=== PATIENT | male | born 1945 | race Hispanic/Latino ===

== ENCOUNTER 2017-07-02 15:45 | Emergency (ER) | payer OTHER, MEDICARE ==
[~2017-07-02] VITALS: Ht 165.1 cm; Wt 79.8 kg
[~2017-07-02 15:45] MED LIST: ASPIRIN EC81 MG PO; FENOFIBRATE160 MG PO; LISINOPRIL-HCT1 EAC1 PO; METFORMIN HCL500 MG PO; METOPROLOL SUC100 MG PO; PERCOCET 10-321 EACH PO; SIMVASTATIN20 MG PO
[2017-07-02] MEDS ORDERED: ACYCLOVIR200 MG PO (19:26)
== END 2017-07-02 19:40 | disposition home or self-care (01) ==
LOC: ED 15:45
DX: A60.01 Herpesviral infection of penis (principal); E11.9 Type 2 diabetes mellitus without complications; E78.00 Pure hypercholesterolemia, unspecified; Z87.891 Personal history of nicotine dependence; Z90.49 Acquired absence of other specified parts of digestive tract; Z88.0 Allergy status to penicillin; Z79.82 Long term (current) use of aspirin; Z79.899 Other long term (current) drug therapy; Z79.84 Long term (current) use of oral hypoglycemic drugs
CPT/HCPCS: 81001; 99283

== ENCOUNTER 2021-04-17 06:03 | Inpatient (IN) | payer OTHER, MEDICARE ==
[~2021-04-17] VITALS: Ht 170.2 cm; Wt 74.6 kg
[~2021-04-17 06:03] MED LIST changes: +ACYCLOVIR200 MG PO; +MECLIZINE HCL25 MG PO; +ZOFRAN4 MG PO
--- NOTE | 2021-04-17 08:15 | NUR ---
Spoke with pts , brother, and sister in law. All report pt has history of vertigo post brain tumor in 1993. This week vertigo and falls have increased. Pt not feeling well. Now running a fever. Family state they are unable to care for pt as they have bad backs and are unable to lift pt off floor. Would like pt to go SNF for rehab to increase strengt to be able to walk on his own again. Pt is Covid +, will cont [email or web address]. Will wait to send chart for placement until pt seen by PT/OT. Will seek placement for pt Mon or Tu if he is medically stable to dc.
--- NOTE | 2021-04-17 10:46 | NUR ---
PATIENT ARRIVED FROM ER, PATIENT IN BED, BED ALARM ON, ROOM AIR , ORIENTATED X3 , FORGETFUL TO DATE AND YEAR, DENIES ANY NEEDS AT THE MOMENT.
--- NOTE | 2021-04-17 12:53 | NUR ---
rn in room to recheck temp, 102.3 prn tylenol given charge histotechnologist notified and DR tucker. blood culture ordered
--- NOTE | 2021-04-17 13:48 | NUR ---
Patient had an incontinent urine. Patient was changed, 2 PA, patient needs help rolling. RN was within the room.
[2021-04-17] MEDS ORDERED: MECLIZINE HCL25 MG PO (14:17)
[2021-04-17] MEDS ORDERED: METOPROLOL SUCC50 MG PO (14:21)
--- NOTE | 2021-04-17 15:09 | NUR ---
Spoke with PT and she will evaluate pt shortly.
--- NOTE | 2021-04-17 15:49 | NUR ---
rn updated brother christiano on pateint condtition.
--- NOTE | 2021-04-17 16:11 | NUR ---
MED REC COMPLETE
--- NOTE | 2021-04-17 16:18 | NUR ---
[facility] form, face sheet, covid test, summary with vs, med list, H&P, PT eval faxed to [facility] covid admissions for placement to a covid SNF.
--- NOTE | 2021-04-17 16:21 | NUR ---
RN IN ROOM TO ASSESS PATIENT PATIENT AFEBRILE, ASSISTED IN CALLING USING ROOM PHONE DENIES ANY OTHER NEEDS AT THE MOMENT.
--- NOTE | 2021-04-17 18:33 | NUR ---
133/57 BP. 76 MAP. 100.7 Temp. RN has been notified. Patient had a urine incontinence. Nadege care was done and patient was lifted up in bed. Patient can help roll from side to side a little.
--- NOTE | 2021-04-17 18:46 | NUR ---
PRN TYLENOL GIVEN FOR FEVER.
--- NOTE | 2021-04-17 20:30 | NUR ---
PATIENT CALLED TO GO TO THE BATHROOM. PATIENT INCONTINENT AND URINE IN ATTENDS AND ON GOWN. PATIENT 1PA UP TO BEDSIDE COMMODE AND MISSED COMMODE AND URINATED ON THE FLOOR. PATIENT, BED, AND ROOM CLEANED UP. NEW ATTENDS ON. BED ALARM ON. VS AND I+O COMPLETE. CALL LIGHT IS IN REACH.
--- NOTE | 2021-04-17 22:47 | NUR ---
PATIENT RESTING QUIETLY IN BED. PATIENT DENIES ANY CARE NEEDS AND DENIES PAIN. 3UNITS INSULIN COVERAGE GIVEN FOR 225 BLOOD SUGAR. PATIENT'S CALL LIGHT IS IN REACH AND PATIENT READY TO GET SOME SLEEP. LIGHTS TURNED DOWN AND CALL LIGHT IS IN REACH.
--- NOTE | 2021-04-18 01:15 | NUR ---
PATIENT REQUESTING TO USE THE BEDSIDE COMMODE. THIS RN ASSISTED TO COMMODE 1PA. PATIENT ALREADY INCONTINENT IN ATTENDS AND ON CHUX AND FLAT SHEET. ALL THESE WERE CHANGED AND PATIENT CLEANED UP AND BACK IN BED WITH A WARM BLANKET. BED ALARM ON AND CALL LIGHT IS IN REACH.
--- NOTE | 2021-04-18 03:30 | NUR ---
PATIENT RESTING QUIETLY IN LOW FOWLERS POSITION, EYES CLOSED, RESPIRATIONS REGULAR AND EVEN, CALL LIGHT IS IN REACH.
--- NOTE | 2021-04-18 04:45 | NUR ---
PATIENT CALLED TO GO TO THE COMMODE AND VOIDED 100MLS AND WAS INCONTIENT IN HIS ATTENDS ALREADY. 1PA TO THE COMMODE AND BACK TOP. THIS RN PLACED NEW ATTENDS AND PATIENT DENIED ANY OTHER NEEDS. CALL LIGHT IS IN REACH AND BED ALARM IS ON.
--- NOTE | 2021-04-18 06:53 | NUR ---
PATIENT CALLED TO USE THE COMMODE VOIDED A SMALL AMOUNT, BUT WAS INCONTINENT IN ATTENDS ALREADY. ATTENDS CHANGED AND PATIENT BACK IN BED WITH A FRESH GOWN. CALL LIGHT IN REACH AND BREAKFAST ORDER TAKEN.
--- NOTE | 2021-04-18 07:15 | NUR ---
report recieved from rn shift mgr RN, patient sleeping in bed, bed alarm real estate economist light within reach, no needs at the moment.
--- NOTE | 2021-04-18 07:40 | NUR ---
patient in the bed resting, blood sugar done. he is sitting up in the bed eating breakfast. call light within reach. warmwash cloth offered, no further needs at this time.
--- NOTE | 2021-04-18 10:28 | NUR ---
RN IN ROOM TO ADMINSTER TYELNOL FOR FEVER, DR EAGLE AWARE OF FAVERS, NO NEEDS AT THE TIME DENIES DISCOMFORT.
--- NOTE | 2021-04-18 11:45 | NUR ---
RN IN ROOM TO REASSESS TEMP, TEMP STILL REMAINS ELEVATED PATIENT DENIES DISCOMFORT, TEMP 102.5, DR EAGLE NOTIFIED MOTRIN ORDERED, PATIENT ASSISTED UP TO THE RECLINER AND HELPED CLEAN UP HAD A URINE INCONTINENCE, SBA WITH WALKER AND GAIT BELT, CHAIR ALARM ON DENIES, LUNCH TRAY DELIVERED, CALL LIGHT WITHIN REACH.
--- NOTE | 2021-04-18 13:07 | NUR ---
RN IN ROOM TO REASSESS PATIENT TEMP 99.1 , RN ASSISTED PATIENT IN DIALING CHAZ DENIES ANY OTHER NEEDS AT THE MOMENT.
--- NOTE | 2021-04-18 15:21 | NUR ---
PATIENT SON HERE TO SEE PATIENT
--- NOTE | 2021-04-18 16:29 | NUR ---
RN updated patient anshu lawrence on patient condition provided phone number to the unit, patient in recliner wacthing tv no needs at the time.
--- NOTE | 2021-04-18 20:00 | NUR ---
PATIENT UP TO THE BATHROOM AND MISSED TOILET HAT, BUT SOUNDED LIKE HE VOIDED A FAIR AMOUNT. 1PA WITH THIS RN AND FWW TO BATHROOM AND BACK TO BED. PM MEDS GIVEN AND VS ARE STABLE. BED ALARM IS ON AND PATIENT HAS NO OTHER MEDS AT THIS TIME. CALL LIGHT IS IN REACH.
--- NOTE | 2021-04-18 21:26 | NUR ---
PT'S IV PUMP WAS BEEPING, TUBING WAS KINKED UNDER HIS ARM. IT IS NOW INFUSING FINE. PT DENIES FURTHER NEEDS, CALL LIGHT IS CLOSE.
--- NOTE | 2021-04-18 23:36 | NUR ---
PATIENT RESTING QUIETLY IN BED, EYES CLOSED, RESPIRATIONS REGULAR AND EVEN, CALL LIGHT IS IN REACH, BE ALARM IS ON.
--- NOTE | 2021-04-19 02:00 | NUR ---
PATIENT CALLED TO GO TO THE RESTROOM, BUT WAS ALREADY INCONTINENT OF URINE IN ATTENDS AND IN THE BED. 1PA UP TO THE BEDSIDE COMMODE WITH FWW. BED CHANGED AND NEW ATTTENDS IN PLACE. PATIENT MISSED THE COMMODE AND VOIDED ALL OVER THE FLOOR. FLOOR CLEANED UP. PATIENT BACK IN FRESH BED AND CALL LIGHT IN REACH. PATIENT HAS FEVER 101.6F AND GIVEN TYLENOL. CHARGE NURSE STEVEN INFORMED OF FEVER.
--- NOTE | 2021-04-19 04:38 | NUR ---
CHECKED ON PATIENT AND HE HAD THROWN OFF HIS COVERS AND NEEDED TO GO TO THE BATHROOM. THIS RN ASKED WHY HE DID NOT USE HIS CALL LIGHT AND HE SAYS,"I DID!" CHECKED TO MAKE SURE CALL LIGHT IS WORKING AND IT IS. PATIENT INCONTINENT OF URINE AGAIN IN A LARFGE AMOUNT. ATTENDS AND RAKESH CHANGED. PATIENT TRIED TO VOID ON THE COMMODE WITH NO RESULT. PATIENT BACK IN BED WITH BED ALARM ON, DRY LINENS AND NEW GOWN AND ATTENDS. PATIENT HAD NO OTHER NEEDS AT THIS TIME. CALL LIGHT IS IN REACH.
--- NOTE | 2021-04-19 06:10 | NUR ---
PT CALLED FOR ASSISTANCE TO BSC. HE IS NOW BACK IN BED AFTER VOIDING 100MLS OF URINE. PT DENIES FURTHER NEEDS, CALL LIGHT IS CLOSE.
--- NOTE | 2021-04-19 07:46 | NUR ---
RECEIVED REPORT FROM DAY SHIFT RN. PATIENT IS RESTING IN BED WITH EYES CLOSEDM RR 16. CALL LIGHT IN REACH. BED ALARM ON FOR SAFETY.
--- NOTE | 2021-04-19 08:45 | NUR ---
PATIENT ASSESMENT COMPLETED. PATIENTS VITALS TAKEN AND RECORDED. ATTEND IS DRY AT THIS TIME. PATIENT ASSISTED TO THE RECLINER A 1PA W/FWW. PATIENT IS UP TO RECLINER FOR BREAKFAST. PATIENT DENIES ANY PAIN OR SOB. PATIENTS IV IS INFUSING AND FLUSHES WELL. PATIENTS SCHEDULED MEDICATIONS GIVEN PER ORDER. PATIENTS WATER REFILLED. PATIENT HAS CHAIR ALRM ON FOR SAFETY. CALL LIGHT IN REACH.
--- NOTE | 2021-04-19 10:12 | NUR ---
PATIENT IS RESTING IN RECLINER TALKING ON THE PHONE. PATIENT DENIES ANY NEEDS. CALL LIGHT IN REACH.
--- NOTE | 2021-04-19 11:03 | NUR ---
PATIENT ASSISTED TO THE RESTROOM A 1PA W/FWW. PATIENT WAS ABLE TO VOID. PATIENT IS BACK IN RECLINER RESTING. PATIENTS IV INFUSING PER ORDER. PATIENT WAS ABLE TO STATE WHERE HE WAS AND WHY HE WAS HERE. PATIENT DID NOT KNOW DATE. PATIENT WAS ABLE TO STATE . PATIENT WAS ABLE TO STATE THE PRESIDENT AND REAL ESTATE MANAGEMENT SPECIALIST. PATIENTS CHAIR ALARM OS ON. PATIENT ASSISTED TO CALL BROTHER. CALL LIGHT IN REACH.
--- NOTE | 2021-04-19 12:55 | NUR ---
PATIENTS SCHEDLUED MEDICATION GIVEN PER ORDER. PATIENT COMPLETED PT. PATIENT IS NOW IN RECLINER EATING LUNCH. CHAIR ALARM ON FOR SAFETY. CALL LIGHT IN REACH.
--- NOTE | 2021-04-19 13:55 | NUR ---
PATIENTS VITALS TAKEN AND RECORDED. INTAKE AND OUTPUT RECORDED. PATIENTS COMPLETED HIS LUNCH AND CONSUMED 100%. PATIENT DENIES ANY NEEEDS. CHAIR ALARM REMAINS ON. IV INFUSING PER ORDER.
--- NOTE | 2021-04-19 17:26 | NUR ---
CBG checked, 230. SS insulin administered. IVF infusing WNL. Pt sitting up in chair eating dinner. States no further needs at this time.
--- NOTE | 2021-04-19 19:30 | NUR ---
SHIFT REPORT RECEIVED BY THIS NURSE FROM SU [place]. PATIENT UP TO THE BATHROOM WITH DAY SHIFT METAL RECLAMATION KETTLE TENDER AT THIS TIME.
--- NOTE | 2021-04-19 20:47 | NUR ---
CALL LIGHT ANSWERED, 1PA WITH FWW TO AMBULATE TO RESTROOM, GAIT UNSTEADY. INCONTINENT OF URINE. ATTENDS CHANGED, SMALL VOID IN TOILET. BACK IN BED. IVF INFUSING WNL. VSS. ICE WATER PROVIDED. pt DENIES ADDITIONAL NEEDS. CALL LIGHT AND PERSONAL SUPPLIES IN REACH.
--- NOTE | 2021-04-19 21:15 | NUR ---
PATIENT'S PM ASSESSMENT IS COMPLETE. PATIENT JUST BACK TO BED AFTER GOING TO THE BATHROOM WITH CHARGE NURSE CATHY. LUNGS ARE DIM BUT CLEAR AND HAVING NO RESPIRATORY ISSUES. PATIENT DENIES PAIN AND HAS FRESH WATER. PATIENT HAS NO OTHER CARE NEEDS AT THIS TIME. CALL LIGHT IS IN REACH AND BED ALARM IS ON.
--- NOTE | 2021-04-19 23:20 | NUR ---
CHECKED ON PATIENT AND HE WAS GETTING UNDRESSED AND SAID HE NEEDED TO USE THE RESTROOM. THIS RN ASSISTED PATIENT TO THE BEDSIDE COMMODE AND BACK TO BE 1PA. PATIENT WAS INCONTINENT URINE AND VOIDED SOME IN THE COMMODE. NEW ATTENDS IN PLACE AND PATIENT COVERED UP AND BED ALARM ON. PATIENT DENIES ANY FURTHER CARE NEEDS AT THIS TIME.
--- NOTE | 2021-04-20 00:08 | NUR ---
PATIENT'S IV BEEPING AND NEW BAG OF IV FLUIDS HUNG. PATIENT DENIES ANY CARE NEEDS AT THIS TIME AND IS WATCHING TV. CALL LIGHT IS IN REACH AND BED ALARM IS ON.
--- NOTE | 2021-04-20 01:37 | NUR ---
PATIENT CALLED TO USE THE RESTROOM AND THIS RN ASSISTED PATIENT TO THE COMMODE AND BACK TO BED. PATIENT VOIDED A SMALL AMOUNT, BUT WAS ALREADY INCONTINENT IN HIS ATTENDS AND THESE WERE CHANGED. PATIENT BACK IN BED AND BED ALARM ON. CALL LIGHT IN REACH AND ICE WATER REFILLED. PATIENT HAS NO OTHER CARE NEEDS AT THIS TIME.
--- NOTE | 2021-04-20 04:11 | NUR ---
PATIENT RESTING QUIETLY SUPINE, EYES CLOSED, RESPIRATIONS ARE REGULAR AND EVEN, CALL LIGHT IN REACH, AND BED ALARM ON. NO CURRENT CARE NEEDS AT THIS TIME.
--- NOTE | 2021-04-20 04:51 | NUR ---
CALL LIGHT ANSWERED. PATIENT GOT UP TO USE THE BEDSIDE COMMODE 1 PA USING WALKER. PRIMARY RN SCOT WAS WITH PATIENT. V/S AND I&O'S DONE AND RECORDED. PATIENT IS BACK IN BED. CALL LIGHT WITHIN REACH.
--- NOTE | 2021-04-20 04:52 | NUR ---
PATIENT UP TO THE COMMODE 1PA AND FWW. OFELIA BANUELOS AND THIS RN IN ROOM HELPING PATIENT. PATIENT VOIDED AN LITTLE, BUT WAS INCONTINENT URINE IN IN ATTENDS ON ON BED CHUX. BOTH THESE WERE CHANGED AND PATIENT WASHED UP AND BACK IN BED. VS STABLE AND AM ASSESSMENT DONE. PATIENT HAD NO OTHER CARE NEEDS AT THIS TIME. CALL LIGHT IS IN REACH AND BED ALARM.
--- NOTE | 2021-04-20 06:30 | NUR ---
PATIENT HAS SLEPT TONIGHT IN BETWEEN HIS EPISODES OF INCONTINENCE. PATIENT SEEMS TO BE ABLE TO CALL TO VOID DURING THE DAY, BUT DOESN'T CALL OR ONLY CALLS AFTER HE IS ALREADY INCONTINENT. PATIENT HAS REMAINED AFEBRILE ALL NIGHT AND OTHER VS HAVE BEEN STABLE. LUNGS ARE CLEAR, BUT DIM. PATIENT CURRENTLY RESTING QUIETLY SUPINE IN BED AND BED ALARM IS ON. RERSPIRATIONS ARE REGULAR AND EVEN AND CALL LIGHT IS IN REACH.
--- NOTE | 2021-04-20 07:29 | NUR ---
REPORT RECIEVED FROM WENDY RIVERA RN.
--- NOTE | 2021-04-20 07:45 | NUR ---
Received message when I returned from the weekend from Wilma at [facility] [address], stating they will accept this pt today. Attempted to return call for further information to determine where they are located as [facility] will transport today or tomorrow. Left message requesting return call.
--- NOTE | 2021-04-20 08:12 | NUR ---
MORNING ASSESSMENT DONE. PATIENT RECENTLY INCONTINENT OF URINE, LINENS CHANGED, PATIENT UP TO COMMODE. BLOOD GLUCOSE IS 134 THIS MORNING WITH NO COVERAGE. PATIENT DENIES PAIN, BED ALARM IS ON. MORNING MEDICATIONS GIVEN.
--- NOTE | 2021-04-20 08:30 | NUR ---
Updated Dr. Tolentino in 829 meeting pt has been accepting to SNF in [facility]. I have called and spoken with Vanessa mcarthur and they will pick pt up at 10:00 today and transport to [facility] [address].
--- NOTE | 2021-04-20 09:00 | NUR ---
Received call family are at the front of the hospital and would like to have a meeting. Brother is stating pt should not have to go to a SNF and should be able to remain here. He knows other pts who were able to stay. He is also staying pt cannot return home, but will need to go to a SNF when he is over covid. Attempted to explain Uli does not met requirements to remain hospitalized. He does not have a need for 02 and his vs are stable. He is in need of PT and we do not provide this here. He then states he was infomred by [facility] pt could remain here for 20 days. We further discussed this is the time period medicare will pay for a SNF not a hospital. I also let him know [facility] does not have any say in length of stay at the hospital. After 40 mins of conversation where I repeated pt does not cont. to qualify for an IP stay, I let the family know they may take Uli home to their house or he may go to the SNF as scheduled. I asked the if she is ok with the plan and she states, yes. She just would like him to get to a assisted. I then reminded the family, pts transport will be here in 15 min. I asked if they had brought clothing as we had discussed last week and they did not. will go home and get clothing for rehab stay.
[2021-04-20] MEDS ORDERED: IBUPROFEN400 MG PO (09:09)
[2021-04-20] MEDS ORDERED: TYLENOL325 MG PO (09:09)
[2021-04-20] MEDS ORDERED: METOPROLOL TART25 MG PO (09:09)
[2021-04-20] MEDS ORDERED: MECLIZINE HCL25 MG PO (09:10)
[2021-04-20] MEDS ORDERED: SIMVASTATIN20 MG PO (09:10)
[2021-04-20] MEDS ORDERED: ASPIRIN81 MG PO (09:11)
[2021-04-20] MEDS ORDERED: METFORMIN HCL500 MG PO (09:11)
[2021-04-20] MEDS ORDERED: HUMALOG100 UNITS/ SUB-Q (09:12)
--- NOTE | 2021-04-20 09:20 | NUR ---
RAPID COVID TEST DONE PER DR ORDER. COVID TEST COLLECTED FROM BOTH NARES W/O ISSUE. PT TOLERATED WELL.
--- NOTE | 2021-04-20 10:00 | NUR ---
Saw brother at nurses station, he is complaining transport is late. I let him know I moved it back and I asked him if family had arrived with pts clothing. He states they are on their way. Informed I had moved transport back as I did not think they would be ready and transport will be here in 10 minutes. Brother will call and see if pts belongings will be here. Returned to office and faxed orders, pasrr, rx, PT notes and updated clinicals from the weekend. gave phone number for RN to call report.
--- NOTE | 2021-04-20 10:20 | NUR ---
PATIENT IN WHEELCHAIR AND TAKEN OUTSIDE FOR [facility] TO DRIVE PATIENT TO [place].
--- NOTE | 2021-04-20 10:33 | NUR ---
REPORT CALLED TO THE [facility] IN [place].
--- NOTE | 2021-04-20 10:40 | NUR ---
Recieved call from Wilma at [facility]. Orders are completed and updated pt left at 1015.
== END 2021-04-20 10:18 | disposition short-term general hospital (02) | DRG 70 ==
LOC: ED 06:03 → MS 10:05
PROVIDERS: ADMIT Student in an Organized Health Care Education/Training Program; ATTEND Student in an Organized Health Care Education/Training Program
PROC: 8E0ZXY6 Isolation (ICD-10-PCS; principal; 2021-04-17)
DX: G93.41 Metabolic encephalopathy (principal); U07.1 COVID-19; M62.82 Rhabdomyolysis; M54.2 Cervicalgia; R42 Dizziness and giddiness; S09.90XA Unspecified injury of head, initial encounter; E11.9 Type 2 diabetes mellitus without complications; R29.6 Repeated falls; I10 Essential (primary) hypertension; E78.5 Hyperlipidemia, unspecified; Z98.890 Other specified postprocedural states; Z90.49 Acquired absence of other specified parts of digestive tract; Z88.0 Allergy status to penicillin; Z79.82 Long term (current) use of aspirin; Z79.899 Other long term (current) drug therapy; Z79.84 Long term (current) use of oral hypoglycemic drugs; W19.XXXA Unspecified fall, initial encounter
CPT/HCPCS: 70450; 71045; 72125; 80048; 80053; 81001; 82553; 85025; 85610; 87040; 97116; 97161; 97165; 97530; 99285-25; A9270; C9803; J1650; J1815; J7121; U0003

== ENCOUNTER 2023-02-01 12:45 | Day surgery (SDC) | payer BC, MEDICARE ==
[~2023-02-01] VITALS: Ht 162.6 cm; Wt 68.0 kg
[~2023-02-01 12:45] MED LIST changes: +ASPIRIN81 MG PO; +HUMALOG100 UNITS/ SUB-Q; +IBUPROFEN400 MG PO; +METOPROLOL SUCC50 MG PO; +METOPROLOL TART25 MG PO; +RYBELSUS14 MG PO; +TYLENOL325 MG PO
[2023-02-01 13:23] VITALS: BP 122/66
--- NOTE | 2023-02-01 15:29 | NUR ---
02/01/23 1529 Elvira Roblero 1520- PT ARRIVES TO UNIT VIA STRETCHER FROM OR. PT IS AROUSABLE BY VERBAL STIMULI. PT REPORTS NO PAIN OR NAUSEA AT THIS TIME. PT EYES OPEN AND CLOSE PERIODICALLY, RESPIRATIONS ARE EVEN AND UNLABORED, NO SIGNS OF DISTESS. PT ON 3L OF O2 W/O2 AT 100% VIA PULSE OX. 1524- PT TITRATED TO RA AT THIS TIME, O2 >90% VIA PULSE OX. RESPIRATIONS EVEN AND UNLABORED. PT AWAKE ON AND OFF, ASKS QUESTIONS APPROPRIATELY. 1526- STIVEN CARRANZA AT BEDSIDE DISCUSSING PROCEDURE W/PT. ALL PT QUESTIONS ANSWERED AT THIS TIME. 1529- PT ENCOURAGED TO PASS GAS NEEDED, PT STATES VERBAL UNDERSTANDING AT THIS TIME.
[2023-02-01 15:47] VITALS: BP 117/68
--- NOTE | 2023-02-03 10:42 | OR ---
[facility] [address], [place] [address] Signed DATE OF OPERATION: 02/01/2023 SURGEON: Jesus Saleem MD PREOPERATIVE DIAGNOSIS: Colon screening. POSTOPERATIVE DIAGNOSIS: Normal colon to cecum. PROCEDURE: Total colonoscopy to cecum. ANESTHESIA: Intravenous sedation, fentanyl 100 mcg, and Versed 4 mg. INDICATION: This 77-year-old man, who is a patient of DARIEL Barnett. He is known to me from the past and had undergone colonoscopy in 2013, at which time he had heme-positive stool. He has a distant history of hematochezia in 2001. 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 He is symptom free at this time and is now to undergo colonoscopy for screening. He understands risk of bleeding, infection, and perforation and wished to proceed. FINDINGS: The prep was good. Complete colonoscopy was undertaken of the cecum. He had no evidence of polyps, diverticular formation, colitis, or cancer. He did have some scarring in the posterior anal canal, not showing any sign of neoplasm and represented probably a healed fissure. DESCRIPTION OF PROCEDURE: The patient was brought to the endoscopy suite and placed in lateral decubitus position, given intravenous sedation to the point of slurred speech and nystagmus. Digital rectal examination demonstrated posterior anal scar without associated bleeding or neoplasm. The Olympus video colonoscope was passed in the rectum and manipulated throughout the colon ultimately intubating the cecum itself. The ileocecal valve and appendiceal orifice were normal. Scope was withdrawn from that. Examination throughout showed no sign of polyps, diverticular formation, colitis, or cancer. Retroflexed view was normal. Careful passes through the anal canal showed no sign of neoplastic change of the anal canal either. Scope was removed. The patient was taken to the recovery room Electronically Signed By: JESUS SALEEM MD 02/03/23 1042 PATIENT NAME: TAN HOLDEN OPERATIVE REPORT DATE OF : 47 REPORT #: [id number] PHYSICIAN: JESUS SALEEM MD PCP: CHEYANNE DELA CRUZ PA-C REPORT IS CONFIDENTIAL AND NOT TO BE RELEASED WITHOUT AUTHORIZATION [facility] [address], [place] [address] Signed in good condition. CONCLUDING DIAGNOSIS: Normal colon to cecum. PLAN: Recommend repeat colonoscopy in 10 years if clinically appropriate at age 87 based on his prior history of polyps. He will return to the ongoing care of PA. Anibal MD DEMETRIS Dutton/MODL /[id number] cc: Cheyanne Dela Cruz PA-C Copies: CHEYANNE DELA CRUZ PA-C ~ Electronically Signed By: JESUS SALEEM MD 02/03/23 1042 PATIENT NAME: TAN HOLDEN OPERATIVE REPORT DATE OF : 47 REPORT #: [id number] PHYSICIAN: JESUS SALEEM MD PCP: CHEYANNE DELA CRUZ PA-C REPORT IS CONFIDENTIAL AND NOT TO BE RELEASED WITHOUT AUTHORIZATION
== END 2023-02-01 16:10 | disposition home or self-care (01) ==
LOC: OPS 12:45 → DS 12:56 → OPS 13:45 → DS 13:45 → OPS 16:10
PROVIDERS: ATTEND Surgery
PROC: 0DJD8ZZ Inspection of Lower Intestinal Tract, Via Natural or Artificial Opening Endoscopic (ICD-10-PCS; principal; 2023-02-01 13:45)
DX: Z12.11 Encounter for screening for malignant neoplasm of colon (principal); I10 Essential (primary) hypertension; Z98.890 Other specified postprocedural states; Z86.010 Personal history of colon polyps
CPT/HCPCS: 99153; G0500; J2250; J3010; J7121